=== PATIENT | female | born 1945 | race Caucasian/White ===

== ENCOUNTER 2022-01-06 07:55 | Outpatient (CLI) | payer MEDICARE, OTHER | END 2022-01-06 07:56 | disposition home or self-care (01) | LOC: CSHCT 07:55 | PROVIDERS: ATTEND Family Medicine | DX: R29.898 Other symptoms and signs involving the musculoskeletal system (principal); C41.9 Malignant neoplasm of bone and articular cartilage, unspecified | CPT/HCPCS: 70450 ==

== ENCOUNTER 2022-03-23 08:32 | Outpatient (CLI) | payer MEDICARE, OTHER | END 2022-03-23 08:33 | disposition home or self-care (01) | LOC: CSHWCC 08:32 | PROVIDERS: ATTEND Nurse Practitioner Family | DX: I87.331 Chronic venous hypertension (idiopathic) with ulcer and inflammation of right lower extremity (principal); L97.812 Non-pressure chronic ulcer of other part of right lower leg with fat layer exposed; R60.0 Localized edema | CPT/HCPCS: 87070; 87077; 87186; 87205; 97139; G0463; 99204 ==

== ENCOUNTER 2022-07-17 15:15 | Inpatient (IN) | payer MEDICARE, OTHER ==
[2022-07-17 16:20] LABS: #Basophils 0.1 10x3/uL (0.0-0.2); #Eosinphils 1.2 10x3/uL (0.0-0.5); #Monocytes 0.9 10x3/uL (0.0-1.1); #Neutrophils 7.3 10x3/uL (1.5-8.4); %Basophils 0.9 % (0.0-2.0); %Eosinophils 11.2 % (0.0-6.0); %Lymphocytes 12.5 % (18.0-47.0); %Monocytes 8.1 % (0.0-10.0); %Neutrophils 66.9 % (40.0-75.0); Hemoglobin 10.8 g/dL (12.0-15.5); Mean Corpuscular HGB CONC 32.6 g/dL (32.0-36.0); Mean Corpuscular Hemoglobin 26.5 pg (27.0-33.0); Mean Corpuscular Volume 81.1 fl (81.6-98.3); Mean Platelet Volume 8.6 fl (7.4-10.4); Platelet Count 374 10x3/uL (150-450); RBC Distribution Width 14.9 % (11.5-14.5); Red Blood Cell (RBC) Count 4.08 10x6/uL (3.90-5.03); White Blood Cell (WBC) Count 10.8 10x3/uL (3.5-10.5)
[2022-07-17] MEDS ORDERED: Fentanyl 100 MCG/2 ML VIAL ONE (16:20)
[2022-07-17 16:31] LABS: ALT (SGPT) 17 U/L (8-55); AST (SGOT) 22 U/L (5-34); Albumin 3.9 g/dL (3.4-4.8); Alkaline Phosphatase 103 U/L (40-110); Anion Gap 16 mmol/L (10-20); BUN (Urea Nitrogen) 25 mg/dL (9.8-20.1); Bilirubin, Total 0.3 mg/dL (0.2-1.2); Calc. Creatinine Clearance 0 mL/min (70-130); Calcium 9.8 mg/dL (7.8-10.44); Carbon Dioxide 22 mmol/L (23-31); Chloride 99 mmol/L (98-107); Estimated GFR 47; Globulin 4.2 g/dL (2.4-3.5); Glucose 188 mg/dL (83-110); Protein, Total 8.1 g/dL (5.8-8.1); Sodium 132 mmol/L (136-145)
[2022-07-17] MEDS ORDERED: Cefepime 2 GM VIAL ONE (17:43)
[2022-07-17] MEDS ORDERED: VANCOMYCIN 2 GRAM/400 ML BAG 2 GM in Premix Bag 1 BAG IVPB SCH (17:45)
[2022-07-17] MEDS ORDERED: Acetaminophen 325 MG TAB PO PRN (18:13)
[2022-07-17] MEDS: Fentanyl 100 MCG/2 ML VIAL SLOW IVP PRN (21:50)
[2022-07-18 00:01] VITALS: BMI 31.8
[2022-07-18 01:28] LABS: SARS-CoV-2 NAA Rapid Test Not Detected (NotDetected)
[2022-07-18 04:35] LABS: #Basophils 0.1 10x3/uL (0.0-0.2); #Eosinphils 1.5 10x3/uL (0.0-0.5); #Monocytes 1.1 10x3/uL (0.0-1.1); #Neutrophils 5.6 10x3/uL (1.5-8.4); %Eosinophils 14.2 % (0.0-6.0); %Lymphocytes 20.3 % (18.0-47.0); %Monocytes 10.4 % (0.0-10.0); %Neutrophils 53.9 % (40.0-75.0); Hemoglobin 10.3 g/dL (12.0-15.5); Mean Corpuscular HGB CONC 32.3 g/dL (32.0-36.0); Mean Corpuscular Hemoglobin 26.1 pg (27.0-33.0); Platelet Count 364 10x3/uL (150-450); RBC Distribution Width 14.9 % (11.5-14.5); Red Blood Cell (RBC) Count 3.94 10x6/uL (3.90-5.03); White Blood Cell (WBC) Count 10.4 10x3/uL (3.5-10.5)
[2022-07-18 05:20] LABS: Anion Gap 13 mmol/L (10-20); BUN (Urea Nitrogen) 18 mg/dL (9.8-20.1); Calc. Creatinine Clearance 98 mL/min (70-130); Calcium 9.4 mg/dL (7.8-10.44); Carbon Dioxide 22 mmol/L (23-31); Chloride 102 mmol/L (98-107); Estimated GFR 70; Glucose 98 mg/dL (83-110); Potassium 4.4 mmol/L (3.5-5.1); Sodium 133 mmol/L (136-145)
[2022-07-18] MEDS: Cefepime 2 GM in Sodium Chloride 0.9% 100 ML IVPB SCH ×2 (06:45→17:29)
[2022-07-18] MEDS: Fentanyl 100 MCG/2 ML VIAL SLOW IVP PRN ×2 (07:04→11:56)
[2022-07-18] MEDS ORDERED: Vancomycin 1.5 GRAM/300 ML BAG 1.5 GM in Premix Bag 1 BAG IVPB SCH (13:00)
[2022-07-18] MEDS: metFORMIN 500 MG TAB PO SCH (17:28)
[2022-07-18] MEDS: Cetirizine HCl 5 MG/5 ML UDCUP PO SCH ×2 (17:29→21:17)
[2022-07-18] MEDS ORDERED: Doxepin HCl 25 MG CAP PO SCH (21:00)
[2022-07-18] MEDS: Famotidine 20 MG TAB PO SCH (21:17)
[2022-07-19 05:20] LABS: Anion Gap 16 mmol/L (10-20); BUN (Urea Nitrogen) 13 mg/dL (9.8-20.1); Calc. Creatinine Clearance 99 mL/min (70-130); Calcium 9.4 mg/dL (7.8-10.44); Carbon Dioxide 20 mmol/L (23-31); Chloride 102 mmol/L (98-107); Estimated GFR 71; Glucose 97 mg/dL (83-110); Potassium 4.4 mmol/L (3.5-5.1); Sodium 134 mmol/L (136-145)
[2022-07-19 05:25] LABS: #Basophils 0.1 10x3/uL (0.0-0.2); #Eosinphils 1.4 10x3/uL (0.0-0.5); #Neutrophils 5.2 10x3/uL (1.5-8.4); %Eosinophils 13.9 % (0.0-6.0); %Lymphocytes 23.3 % (18.0-47.0); %Monocytes 9.6 % (0.0-10.0); Hemoglobin 10.6 g/dL (12.0-15.5); Mean Corpuscular HGB CONC 31.8 g/dL (32.0-36.0); Mean Corpuscular Hemoglobin 26.2 pg (27.0-33.0); Mean Corpuscular Volume 82.2 fl (81.6-98.3); Mean Platelet Volume 8.7 fl (7.4-10.4); Platelet Count 340 10x3/uL (150-450); RBC Distribution Width 15.2 % (11.5-14.5); Red Blood Cell (RBC) Count 4.05 10x6/uL (3.90-5.03)
[2022-07-19] MEDS ORDERED: Levothyroxine Sodium 112 MCG TAB PO SCH (06:00)
[2022-07-19] MEDS: Cefepime 2 GM in Sodium Chloride 0.9% 100 ML IVPB SCH (06:02)
[2022-07-19] MEDS: metFORMIN 500 MG TAB PO SCH (09:53)
[2022-07-19] MEDS: Famotidine 20 MG TAB PO SCH (09:54)
[2022-07-19] MEDS: Cetirizine HCl 5 MG/5 ML UDCUP PO SCH ×2 (09:54→13:30)
[2022-07-19 12:52] LABS: Vancomycin, Trough 14.6 ug/mL
[2022-07-19] MEDS ORDERED: VANCOMYCIN 1.25 GM/250 ML BAG 1.25 GM in Premix Bag 1 BAG IVPB SCH (13:00)
[2022-07-19 13:08] VITALS: TEMP 98.3
[2022-07-19 16:53] VITALS: BP 128/70
== END 2022-07-19 16:30 | disposition home health service (06) | DRG 603 ==
LOC: CSHERS 15:15 → CSHTELE 20:47
PROVIDERS: ADMIT Family Medicine; ATTEND Family Medicine
DX: L03.116 Cellulitis of left lower limb (principal); Z20.822 Contact with and (suspected) exposure to COVID-19; E66.9 Obesity, unspecified; E11.9 Type 2 diabetes mellitus without complications; I10 Essential (primary) hypertension; M79.7 Fibromyalgia; L29.9 Pruritus, unspecified; L73.9 Follicular disorder, unspecified; M10.9 Gout, unspecified; Z87.11 Personal history of peptic ulcer disease; Z85.3 Personal history of malignant neoplasm of breast; Z92.3 Personal history of irradiation; Z85.830 Personal history of malignant neoplasm of bone; Z90.13 Acquired absence of bilateral breasts and nipples; Z88.5 Allergy status to narcotic agent; Z88.6 Allergy status to analgesic agent; Z88.8 Allergy status to other drugs, medicaments and biological substances; Z91.041 Radiographic dye allergy status; Z91.018 Allergy to other foods; Z79.890 Hormone replacement therapy; Z79.84 Long term (current) use of oral hypoglycemic drugs; Z79.899 Other long term (current) drug therapy; Z88.7 Allergy status to serum and vaccine; Z68.31 Body mass index [BMI] 31.0-31.9, adult; Z90.49 Acquired absence of other specified parts of digestive tract; Z90.710 Acquired absence of both cervix and uterus; E89.0 Postprocedural hypothyroidism; Z87.891 Personal history of nicotine dependence
CPT/HCPCS: 36415; 36416; 80048; 80053; 80202; 83605; 85025; 87040; 94760; 96365; 96367; 96375; 96376; J0692; J3010; J3370; J3490; U0002